=== PATIENT | male | born 1985 | race Hispanic/Latino ===

== ENCOUNTER 2020-06-16 15:35 | Emergency (ER) | payer OTHER, SELFPAY ==
[2020-06-16 15:36] VITALS: BP 183/103; PULSE 92; RESP 15; TEMP 36.6; O2SAT 98; BMI 30.5
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
[2020-06-16] MEDS: Acetaminophen 325 MG Tablet 650 MG PO (16:12)
[2020-06-16] MEDS: Lidocaine 1% /Epi 1:100 (20ml) 20 ML Vial 5 ML INFILT (16:25)
[2020-06-16 17:45] VITALS: BP 168/89; RESP 18
== END 2020-06-16 17:46 | disposition home or self-care (01) ==
PROVIDERS: Emergency Provider Emergency Medicine
DX: S06.9X1A Unspecified intracranial injury with loss of consciousness of 30 minutes or less, initial encounter (principal); S01.112A Laceration without foreign body of left eyelid and periocular area, initial encounter; H11.32 Conjunctival hemorrhage, left eye; S39.92XA Unspecified injury of lower back, initial encounter; Y04.2XXA Assault by strike against or bumped into by another person, initial encounter; Y93.9 Activity, unspecified; Y92.89 Other specified places as the place of occurrence of the external cause; Y99.9 Unspecified external cause status
CPT/HCPCS: 12011; 70450; 70486; 72100; 99283

== ENCOUNTER 2023-02-14 15:32 | Emergency (ER) | payer OTHER, SELFPAY ==
[2023-02-14] VITALS (7 sets, daily range): BP systolic 156–187; BP diastolic 100–128; PULSE 84–94; RESP 16–18; TEMP 36.1; O2SAT 98–100; BMI 26.6
--- NOTE | 2023-02-14 17:30 | RAD_ITS ---
EXAM: XR CHEST, 2 VIEWS CLINICAL INDICATION: cough TECHNIQUE: Frontal and lateral views of the chest. COMPARISON: No relevant prior studies available. FINDINGS: LUNGS AND PLEURAL SPACES: Unremarkable. No consolidation or edema. No pneumothorax. No effusion. HEART: Unremarkable. Cardiac silhouette not enlarged. MEDIASTINUM: Central airways and mediastinal contour are unremarkable. BONES/JOINTS: Unremarkable. No acute fracture. SOFT TISSUES: Unremarkable. RAD/Chest PA and Lateral IMPRESSION: No radiographic evidence of acute cardiopulmonary disease. Electronically Signed: Jama Summers MD at 17:51 EST ,
--- NOTE | 2023-02-14 17:44 | EDS_ITS ---
HPI <NAEEM Farias - Last Filed: 02/14/23 21:07> History of Present Illness Chief Complaint: General Illness Narrative Narrative: Patient presenting today due to a nonproductive cough that he has had over the past 3 weeks. He reports that he went to urgent care this afternoon for evaluation and was told to come here due to elevated blood pressure. His blood pressure in triage was 179/118. He reports that he has a history of hypertension and was on medication at 1 time, but he no longer has a PCP and is not taking anything. He also reports that he has had pain to his left lateral rib cage and left mid back from coughing. He denies any fever, chills, chest pain, and shortness of breath. PFSH <NAEEM Farias - Last Filed: 02/14/23 21:07> [facility] Medical History no medical history Home Medications amlodipine 5 mg tablet 5 mg PO DAILY #30 tabs 02/14/23 [Rx Last Taken Unknown] benzonatate 100 mg capsule 100 mg PO BID PRN cough 7 days #14 caps 02/14/23 [Rx Last Taken Unknown] Allergy/AdvReac Type Severity Reaction Status Date / Time No Known Allergies Allergy Verified 02/14/23 15:34 Family History no significant family his Surgical History no surgical history Social History Smoking Status: Never smoker ROS <NAEEM Farias - Last Filed: 02/14/23 21:07> ROS ED Constitutional Constitutional ED: Denies chills or fever(s) Cardiovascular Cardiovascular: Denies chest pain or palpitations Respiratory/Chest Respiratory/Chest: Reports cough; Denies dyspnea Gastrointestinal Gastrointestinal: Denies abdominal pain, nausea or vomiting Musculoskeletal Musculoskeletal: Denies arthralgias or myalgias Integumentary Denies rash Neurologic Neurologic: Denies weakness EXAM <NAEEM Farias - Last Filed: 02/14/23 21:07> Physical Exam Const Vital Signs: 02/14/23 15:33 02/14/23 20:20 02/14/23 21:16 Temperature 97 F L Temperature Source Temporal Pulse Rate 94 93 Respiratory Rate 18 Blood Pressure 179/118 H 187/128 H 177/100 H Blood Pressure Mean 138 147 125 Pulse Ox 98 100 Oxygen Delivery Method Room Air Room Air 02/14/23 21:37 02/14/23 21:48 Temperature Temperature Source Pulse Rate Respiratory Rate Blood Pressure 185/111 H 185/128 H Blood Pressure Mean 135 147 Pulse Ox Oxygen Delivery Method Positive well nourished, well developed and no apparent distress General Appearance ED: well developed HEENT Reports normocephalic and head/scalp atraumatic Mouth ED: Yes moist mucous membranes normal Eyes PERRL and EOMs intact bilaterally Neck full ROM and supple Chest Wall inspection of chest normal Chest Narrative: Tenderness to the left lateral rib cage Resp normal respiratory effort and clear to auscultation bilaterally Cardio regular rate and regular rhythm GI soft to palpation, non-tender, non-distended and no masses Back/Spine normal ROM and normal to inspection Back/Spine Narrative: Tenderness to the left thoracic paraspinal muscles. No midline spinal tenderness. Extremity normal to inspection and full ROM Neuro oriented x3, CN's II-XII intact bilaterally, moves all extremities, no focal motor deficits and no sensory deficits noted Sensorium / Orientation: awake and alert Psych mental status grossly normal and thought process normal Skin no rashes or lesions noted and no wounds <Dr. Jorge L Dumont DO - Last Filed: 02/14/23 22:57> Physical Exam Const Vital Signs: 02/14/23 15:33 02/14/23 20:20 02/14/23 21:16 Temperature 97 F L Temperature Source Temporal Pulse Rate 94 93 Respiratory Rate 18 Blood Pressure 179/118 H 187/128 H 177/100 H Blood Pressure Mean 138 147 125 Pulse Ox 98 100 Oxygen Delivery Method Room Air Room Air 02/14/23 21:37 02/14/23 21:48 Temperature Temperature Source Pulse Rate Respiratory Rate Blood Pressure 185/111 H 185/128 H Blood Pressure Mean 135 147 Pulse Ox Oxygen Delivery Method MDM <NAEEM Farias - Last Filed: 02/14/23 21:07> [facility] Narrative Medical decision making narrative: Patient presenting due to a nonproductive cough he has had over the past 3 weeks. He is nontoxic-appearing and in no acute distress. Blood pressure is elevated, he has a history of hypertension and was on medication at one time but no longer has a PCP. I will give him a referral for a PCP and have given him instructions to call tomorrow to schedule an appointment. Chest x-ray will be obtained to rule out pneumonia and is unremarkable. He was given p.o. hydralazine for his blood pressure but on repeat exam, his blood pressure is still elevated at 187/128. A line will be established and he will be given IV hydralazine. He is asymptomatic with this blood pressure. Blood pressure will be monitored, disposition pending. Radiography Diagnostic Testing: Clinical Impression(s) from Imaging Studies Chest X-Ray 02/14/23 17:30 IMPRESSION: No radiographic evidence of acute cardiopulmonary disease. Electronically Signed: Jama Summers MD at 17:51 EST , <Dr. Jorge L Dumont, DO - Last Filed: 02/14/23 22:57> MDM Radiography Diagnostic Testing: Clinical Impression(s) from Imaging Studies Chest X-Ray 02/14/23 17:30 IMPRESSION: No radiographic evidence of acute cardiopulmonary disease. Electronically Signed: Jama Summers MD at 17:51 EST , Treatment and Re-Evaluation :: I have personally performed a face to face assessment of the patient and have reviewed the CHANTE Note. I performed a substantive portion of the visit including all aspects of the following. My estrada findings include: History: Patient presents with cough and congestion that has been getting worse over the past 3 weeks. Patient states it is gradually getting worse. Patient denies any fevers or chills. Patient denies any sputum production. Patient denies any chest pain or shortness of breath. Patient denies any nausea or vomiting. Exam: Vital signs are stable except for an elevated blood pressure of 179/118. Patient is afebrile. Patient is in no acute distress. Oral mucosa is pink and moist. Neck is supple. Trachea is midline. There is no JVD. Heart was regular rate and rhythm. Lungs are clear and equal bilaterally. There is good respiratory effort noted. Abdomen is soft. Bowel sounds are normal. There is no tenderness. Cranial nerves II through XII are intact. There are no focal motor or sensory deficits noted. Medical Decision Making: Differential diagnosis includes pneumonia, viral upper respiratory infection, and hypertensive urgency. PA and lateral chest x-ray will be obtained to assess for pneumonia. Patient was given a dose of oral hydralazine here. Patient had no improvement of his blood pressure with this. Patient was given a dose of IV hydralazine. Patient still had no improvement of his blood pressure with this. PA and lateral chest x-ray was obtained. There are 2 views. On my independent interpretation, lung rareola are clear. There is normal cardiac silhouette. Bony thorax is normal. There is no acute process noted. Radiologist also interpreted the x-ray and agrees. Patient's blood pressure was still 185/128 on reevaluation. Patient was given a dose of labetalol. Patient's blood pressure improved to 156/112. Patient was given a prescription for Tessalon Perles for his cough. Patient was given a prescription for amlodipine for his blood pressure. Patient was instructed to follow-up with a primary care physician in 5 to 7 days. Patient was instructed return if worse in any way. Patient understood and was agreeable with the plan. All questions were answered. Discharge Plan Triage Chief Complaint: General Illness ED Midlevel Provider: Evelyn Monique ED Provider: Jorge L Dumont Dx/Rx/DC Orders Clinical Impression: Bronchitis, Hypertension Instructions: Controlling High Blood Pressure, ED Bronchitis, No Antibiotic (Adult), ED Hypertension New Begin Treatment Prescriptions: New benzonatate 100 mg capsule 100 mg PO BID PRN (Reason: cough) 7 Days Qty: 14 0RF amlodipine 5 mg tablet 5 mg PO DAILY Qty: 30 0RF Primary Care Provider: Care Physician,No Primary Referrals: Deshawn Magallon MD [Non-Staff] - 1 Week Tabby Tiwari [Non-Staff] - 1 Week Care Physician,No Primary [Primary Care Provider] - Activity Restrictions/Additional Instructions: Follow-up with one of the PCP's I have referred you to. Begin keeping track of your blood pressure. Return for any worsening of your symptoms. Print Language: [place] Disposition Disposition: Home, Self Care
[2023-02-14] MEDS: hydrALAZINE 10 MG Tablet PO (19:32)
[2023-02-14] MEDS: hydrALAZINE 20 MG/ML Vial 10 MG IV (21:01)
[2023-02-14] MEDS: Labetalol (Prefilled) 20 MG/4 ML 10 MG IV (22:14)
== END 2023-02-14 23:02 | disposition home or self-care (01) ==
PROVIDERS: Emergency Provider Emergency Medicine; Visit Provider Emergency Medicine
DX: J40 Bronchitis, not specified as acute or chronic (principal); I10 Essential (primary) hypertension; R07.81 Pleurodynia; Z79.899 Other long term (current) drug therapy
CPT/HCPCS: 71046; 96374; 96375; 99285; A4216

== ENCOUNTER → 2024-04-27 | Outpatient (CLI) | payer OTHER, SELFPAY ==
[2024-04-27 17:37] LABS: Absolute Neutrophil Count 6.8 X10^3/uL (2.0-7.7); Basophil# 0.05 X10^3/uL; Basophil% 0.5 % (0-1); Eosinophil# 0.36 X10^3/uL; Eosinophils% 3.6 % (0-5); Hematocrit 41.5 % (40-54); Hemoglobin 13.3 g/dL (13.0-16.5); Mean Corpuscular Hgb 27.7 pg (27.0-32.0); Mean Corpuscular Volume 86.3 fL (80-94); Mean Platelet Vol. 10.8 fl (6.2-12.0); Monocyte# 1.06 X10^3/uL; Monocyte% 10.6 % (0-10); NRBC Flagged by Analyzer 0 % (0-5); Neutrophil % 68.1 % (47-70); Platelet Count 246 K/mm3 (150-450); RBC Distribution Width CV 15.1 % (11.6-14.6); RBC Distribution Width SD 47.8 fl (35.1-43.9); Red Blood Count 4.81 M/mm3 (4.6-6.2)
[2024-04-27 18:22] LABS: ALB/GLOB Ratio 1.1 RATIO (0.9-2.4); AST(SGOT) 34 U/L (<=37); Alanine Aminotransfer ALT/SGPT 33 U/L (<=46); Albumin, Serum 4.1 g/dL (3.5-5.0); Alkaline Phosphatase 150 U/L (40-129); Anion Gap 11 (5-15); BUN 32 mg/dL (4-19); BUN/Creat Ratio 21.3 RATIO (10-20); Calcium 9.3 mg/dL (7.6-11.0); Chloride 104 mmol/L (96-108); Creatinine, Serum 1.48 mg/dL (0.70-1.20); EST Glomerular Filtration Rate 61 (>60); Globulin 3.7 g/dL (2.2-4.2); Glucose 98 mg/dL (70-99); Potassium 3.7 mmol/L (3.3-5.1); Protein, Total 7.8 g/dL (5.9-8.4); Sodium Level 138 mmol/L (133-145); Total Bilirubin 0.34 mg/dL (0.00-1.30)
== END | disposition home or self-care (01) ==
LOC: MTLAB 16:31
PROVIDERS: Referring Provider Family Medicine; Visit Provider Family Medicine
DX: I10 Essential (primary) hypertension (principal)
CPT/HCPCS: 36415; 80053; 85025